=== PATIENT | male | born 1950 | race Caucasian/White ===

== ENCOUNTER 2025-03-20 07:31 | Outpatient (CLI) | payer MEDICARE, SELFPAY ==
--- NOTE | ~2025-03-20 | MR_ITS ---
EXAMINATION: MR knee LT wo con DATE: 03/20/2025 07:56 INDICATION: Left knee pain. TECHNIQUE: Magnetic resonance imaging (MRI) of the left knee was performed without intravenous contrast. Sequences included axial PD-weighted FS FSE, coronal PD-weighted FSE and PD-weighted FS FSE, sagittal PD-weighted FSE, and sagittal T2-weighted FS FSE. COMPARISON: Left knee radiographs 08/20/2024 FINDINGS: Medial compartment: There is a complex tear involving body and posterior horn of medial meniscus. There is cartilage surface irregularity involving tibial condyle and femoral condyle. Lateral compartment: Lateral meniscus is normal, but motion artifact decreases specificity. Lateral compartment cartilage is normal. Patellofemoral compartment: There is cartilage surface irregularity of patellar medial and lateral facets and median ridge. There is cartilage surface irregularity of trochlea. Ligaments and tendons: Anterior cruciate ligament is thickened with increased signal intensity, consistent with mucoid degeneration. Posterior cruciate ligament is similarly thickened with increased signal intensity, consistent with mucoid degeneration. There are changes of prior sprains of medial collateral ligament and lateral collateral ligament characterized by thickening and increased signal intensity proximally. There is mild patellar tendinopathy. Fluid: There is a small knee joint effusion. There is a small Beasley's cyst. There is mild prepatellar and superficial infrapatellar bursitis. IMPRESSION: 1. Mild chondrosis of medial and patellofemoral compartments. 2. Tear of medial meniscus. 3. 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 4. Small knee joint effusion. 5. Small Beasley's cyst. Reviewed, dictated and finalized at location E. IMPRESSION: 1. Mild chondrosis of medial and patellofemoral compartments. 2. Tear of medial meniscus. 3. Thickening and increased signal involving anterior cruciate ligament and pos terior cruciate ligament, most likely mucoid degeneration. 4. Small knee joint effusion. 5. Small Beasley's cyst.
== END 2025-03-20 07:32 | disposition home or self-care (01) ==
LOC: MICIMG 07:33
PROVIDERS: PCP Internal Medicine; Visit Provider Internal Medicine
DX: M22.42 Chondromalacia patellae, left knee (principal); S83.242A Other tear of medial meniscus, current injury, left knee, initial encounter; S76.112A Strain of left quadriceps muscle, fascia and tendon, initial encounter; S83.512A Sprain of anterior cruciate ligament of left knee, initial encounter; S83.521A Sprain of posterior cruciate ligament of right knee, initial encounter; M25.462 Effusion, left knee; M71.22 Synovial cyst of popliteal space [Baker], left knee
CPT/HCPCS: 73721

== ENCOUNTER 2025-03-20 08:18 | Outpatient (CLI) | payer MEDICARE, SELFPAY ==
--- NOTE | ~2025-03-20 | US_ITS ---
EXAMINATION: US retroperitoneal duplex ltd DATE: 03/20/2025 18:21 CDT INDICATION: Accelerated hypertension. TECHNIQUE: Sonographic imaging of the kidneys was performed with a 3.5 MHz transducer. Retroperitoneal duplex sonogram of the renal arteries also obtained. FINDINGS: No focal flow abnormalities are seen in the renal arteries on color Doppler. The peak systolic velocity ranges of the right and left renal arteries and aorta are 69 cm per second, 40 cm per second, and 12 cm per second, respectively. The velocities and renal to aortic ratios are within normal limits. IMPRESSION: 1. No Doppler evidence of renal artery stenosis. Reviewed, dictated and finalized at location O.
--- OUTSIDE RECORDS SUMMARY | 2025-03-20 08:24 | XMS_ITS | Clinical Summary ---
Author Organization [facility] Address [address] [facility] [place] [id number] Care Team Providers Care Training And Development Director Name Role Phone Unavailable Primary Care Provider Unavailabl e Allergies No known active allergies Medications amoxicillin (AMOXIL) 500 mg capsule 02/14/2021 Active atorvastatin (LIPITOR) 40 mg tablet Active chlorthalidone (HYGROTON) 25 mg tablet Active glimepiride (AMARYL) 2 mg tablet Active HYDROcodone bitartrate 80 mg tablet,oral only,ext.rel.24 hr Active ibuprofen (ADVIL,MOTRIN) 200 mg tablet 02/14/2021 Activ e lisinopriL (PRINIVIL,ZESTR IL) 40 mg tablet Active magnesium oxide (MagOx) 400 mg (241.3 mg magnesium) tablet Active olmesartan-amLO DIPin-hcthiazid 40-10-12.5 mg tablet Active pantoprazole (PROTONIX) 40 mg EC tablet Active sAXagliptin-met formin 2.5-1,000 mg tablet, ER multiphase 24 hr Active amLODIPine (NORVASC) 10 mg tablet Take 10 mg by mouth 1 (one) time each day. 01/13/2022 Active HYDROcodone-antonia taminophen (NORCO) 7.5-325 mg tablet 01/23/2022 Active metFORMIN (GLUCOPHAGE) 1,000 mg tablet Take 1,000 mg by mouth in the morning and at bedtime. 11/28/2021 Active rosuvastatin (CRESTOR) 20 mg tablet Take 20 mg by mouth 1 (one) time each day. 01/02/2022 Active glimepiride (AMARYL) 4 mg tablet Take 4 mg by mouth in the morning and at bedtime. 01/13/2022 Active Active Problems No known active problems Immunizations Immunization Administration Dates Next Due COVID-19, mRNA, LNP-S, PF, 1 00 mcg/0.5mL dose or 50 mcg/0.25mL dose 09/10/2020,08/13/2020 Social History Tobacco Use Types Packs/Day Years Used Date Smoking Tobacco: Every Day Cigarettes Smokeless Tobacco: Never Tobacco Cessation:Ready to Q uit: Not Asked; Counseling Given: Not Answered Comments:none Alcohol Use Standard Drinks/Week Comments Not Currently 0 (1 standard drink = 0.6 oz pur e alcohol) stopped drinking Sex and Gender Information Value Date Recorded Sex Assigned at Not on file Legal Sex Male 9:49 AM PDT Gender Identity Male 02/20/2021 10:59 AM PDT Sexual Orientation Not on file Last Filed Vital Signs Vital Sign Reading Time Taken Comments Blood Pressure 173/97 02/16/2022 8:47 AM CDT Pulse 98 02/16/2022 8:47 AM CDT Temperature - - Respiratory Rate - - Oxygen Saturation - - Inhaled Oxygen Concentration - - Weight 86.2 kg (190 lb) 02/16/2022 8:47 AM CDT Height 175.3 cm (5' 9) 02/16/2022 8:47 AM CDT Body Mass Index 28.06 02/16/2022 8:47 AM CDT Plan of Treatment Health Maintenance Due Date Last Done Comments Dental Oral Exam 1950 Dental Prophylaxis 1950 Dental X-Ray: Bitewings 1950 Dental X-Ray: Full Mouth 1949 Dental X-Ray: Panoramic 02/21/2025 02/20/2022, 02/22 Procedures Procedure Name Priority Date/Time Associated Diagnosis Comments PANORAMIC RADIOGRAPHIC IMAGE Routine 02/22/2021 10:00 AM CDT from Last 3 Months or Most Recently Relevant to Health Maintenance
--- OUTSIDE RECORDS SUMMARY | 2025-03-20 08:24 | XMS_ITS | Clinical Summary ---
Author Organization [facility] Address [address] [place] [id number] Care Team Providers Care Trucking Supervisor Name Role Phone Alexander Queen MD Primary Care Provider Adalberto Burkett MD Unavailable [phone] Allergies Active Allergy Reactions Criticality Noted Date Comments Neosporin G.U. Irrigant Redness Low 04/04/2024 Medications glimepiride (AMARYL) 4 mg tablet Take 1 tablet (4 mg total) by mouth 2 (two) times a day 09/06/2023 Active TOUJEO 300 unit/mL (1.5 mL) pen for injection Inject 15 Units under the skin daily 10/25/2023 Active magnesium oxide (MAG-OX) 400 mg (241.3 mg elemental magnesium) tablet Take 1 tablet (400 mg total) by mouth 2 (two) times a day 10/22/2023 Active metFORMIN (GLUCOPHAGE) 1,000 mg tablet Take 1 tablet (1,000 mg total) by mouth 2 (two) times a day 09/27/[address] (PROTONIX) 40 mg EC tablet Take 1 tablet (40 mg total) by mouth daily 10/22/2023 Active aspirin 81 mg enteric coated tablet Take 1 tablet (81 mg total) by mouth daily 30 tablet 1 12/10/2023 Active cetirizine (ZyrTEC) 10 mg tablet Take 1 tablet (10 mg total) by mouth daily Active HYDROcodone-acet aminophen (NORCO) 7.5-325 mg per tablet Take 1 tablet by mouth every 6 (six) hours as needed for pain Active calcium carbonate-vitami n D3 1,250mg (500mg elemental) - 5 mcg (200 units) per tablet Take 1 tablet by mouth daily 30 tablet 11 01/09/2024 Active metoprolol XL (TOPROL-XL) 100 mg 24 hr tablet Take 1 tablet (100 mg total) by mouth daily 90 tablet 3 12/02/2024 Active Active Problems Problem Noted Date Diagnosed Date Hypokalemia 01/28/2024 Assessment & Plan (01/28/2024 4:32 AM CDT): Noted with initial lab tests Supplement provided Reassessment levels and further adjustments to management Nephrology consultation to assess for potential etiology LETICIA (acute kidney injury) 01/28/2024 Assessment & Plan (01/28/2024 4:32 AM CDT): Noted with initial lab testings IV fluid therapy provided Subsequent lab testing shows resolution Constipation 01/28/2024 Assessment & Plan (01/28/2024 4:33 AM CDT): As noted on CT imaging Lactulose therapy initiated Pending follow-up assessment BPH (benign prostatic hyperplasia) 01/28/2024 Assessment & Plan (01/28/2024 4:34 AM CDT): As noted on CT imaging Further discussion, patient indicates needing to strain to initiate urination with only small urine output being expressed Initiate tamsulosin therapy Consider outpatient urology evaluation Aneurysm 01/28/2024 Assessment & Plan (01/28/2024 4:36 AM CDT): As noted on CT imaging, localized to ascending thoracic aneurysm (4.2 cm) and infrarenal abdominal aortic aneurysm (3.6 cm) Vascular surgery evaluation Possible outpatient follow-up imaging to be coordinated Syncope and collapse 01/06/2024 Assessment & Plan (01/28/2024 4:39 AM CDT): Differential diagnosis includes she was seizure disorder Neurology consultation Fall precaution Neurologic checks CT head inconclusive for acute findings PTOT evaluation Nausea and vomiting 01/05/2024 Metabolic syndrome 01/05/2024 Hypocalcemia 01/05/2024 Atrial fibrillation 01/05/2024 Leukocytosis 01/05/2024 Chronic anemia 01/05/2024 Hypomagnesemia 01/05/2024 Assessment & Plan (01/28/2024 4:31 AM CDT): Noted upon initial lab testings in ER IV supplement provided Repeat lab testing show some improvement, repeat supplement will be provided Daily oral supplements to continue Nephrology consultation for further assessment electrolyte abnormality/etiology Syncope, unspecified syncope type 01/04/2024 S/P CABG (coronary artery bypass graft) 12/04/19 ST elevation myocardial infa rction (STEMI) involving right coronary artery with complication 12/02/2023 Essential hypertension, benign 12/02/2023 Mixed hyperlipidemia 12/02/2023 Tobacco use 12/02/2023 History of diabetes mellitus 12/02/2023 Hypokalemia 12/02/2023 STEMI (ST elevation myocardial infarction) 12/01 Coronary artery disease invo lving chitimacha coronary artery of [place] heart with unstable angina pectoris 12/02/2023 Resolved Problems Problem Noted Date Diagnosed Date Resolved Date ST elevation myocardial infarction (STEMI) 12/02/2023 12/02/2023 STEMI (ST elevation myocardial infarction) 12/02/2023 12/02/2023 Surgical History Surgery Date Site/Laterality Comments CARDIAC CATHETERIZATION CORONARY ARTERY BYPASS GRAFT Medical History Medical History Date Comments Diabetes mellitus Hypertension Coronary artery disease Family History Medical History Relation Name Comments Heart attack Father Relation Name Status Comments Father Social History Tobacco Use Types Packs/Day Years Used Date Smoking Tobacco: Former Cigarettes 1 61.3 S tarted: 12/02/1963 Tobacco Cessation:Counseling Given: Not Answered [facility] Utilities Answer Date Recorded In the past 12 months has [employer], gas, oil, or water [employer] threatened to shut off services in your home? No 01/28/2024 Social Connection and Isolation Panel Answer Date Recorded In a typical week, how many times do you talk on the phone with family, friends, or neighbors? More than three times a week 01/28/2024 How often do you get togethe r with friends or relatives? More than three times a week 01/28/2024 How often do you attend chur ch or pentecostalism services? More than 4 times per year 01/28/2024 Do you belong to any clubs o r organizations such as restorationist groups, unions, fraternal or athletic groups, or school groups? No 01/28/2024 How often do you attend meet ings of the clubs or organizations you belong to? Never 01/28/2024 Are you , , di vorced, , never , or living with a partner? 01/28/2024 AUDIT-C Answer Date Recorded Q1: How often do you have a drink containing alcohol? Never 01/05/2024 Q2: How many drinks containi ng alcohol do you have on a typical day when you are drinking? Patient does not drink Q3: How often do you have si x or more drinks on one occasion? Never 01/05/2024 Overall Financial Resource Strain (CARDIA) Answe r Date Recorded How hard is it for you to pa y for the very basics like food, housing, medical care, and heating? Not very hard 01/28/2024 PHQ-2 Answer Date Recorded PHQ-2 Total Score (If total score is 3 or more points, staff should administer the PHQ-9) 2 01/11/2024 Hunger Vital Sign Answer Date Recorded Within the past 12 months, y ou worried that your food would run out before you got the money to buy more. Never true 01/28/20 24 Within the past 12 months, t he food you bought just didn't last and you didn't have money to get more. Never true 01/28/2024 PRAPARE - Transportation Answer Date Re corded Lack of Transportation (Medical) Not on file 01/28/2024 In the past 12 months, has l ack of transportation kept you from meetings, work, or from getting things needed for daily living? No 01/28/2024 PHQ-9 Answer Date Recorded PHQ-9 Total Score 6 01/11/2024 Housing Stability Vital Sign Answer Rashaun e Recorded In the last 12 months, was t here a time when you were not able to pay the mortgage or rent on time? No 01/28/2024 In the past 12 months, how m any times have you moved where you were living? 0 01/28/2024 At any time in the past 12 m [facility], were you homeless or living in a retirement (including now)? No 01/28/2024 Personal Safety Answer Date Recorded Have you ever been in or are you currently in a harmful physical or emotional relationship or is someone making you feel afraid or unsafe? Denies 01/27/2024 Sex and Gender Information Value Date Recorded Sex Assigned at Not on file Legal Sex Male 2:28 PM CDT Gender Identity Not on file Sexual Orientation Not on file Obstetrics History Last Filed Vital Signs Vital Sign Reading Time Taken Comments Blood Pressure 150/102 12/02/2024 9:24 AM CDT Pulse 64 12/02/2024 9:24 AM CDT Temperature 36.4 C (97.5 F) 01/29/2024 3:24 PM CDT Respiratory Rate 18 12/02/2024 9:24 AM CDT Oxygen Saturation 96% 12/02/2024 9:24 AM CDT Inhaled Oxygen Concentration - - Weight 88 kg (194 lb) 12/02/2024 9:24 AM CDT Height 175.3 cm (5' 9) 12/02/2024 9:24 AM CDT Body Mass Index 28.65 12/02/2024 9:24 AM CDT Plan of Treatment Health Maintenance Due Date Last Done Comments Colon Cancer Screening-Colonoscopy 1950 Hepatitis C Screening 1950 Hepatitis B Screening 1967 Pneumococcal vaccine 65+ (1 of 1 - PCV) 1999 Zoster Vaccine (1 of 2) 1999 Well Visit 65+ 2014 Depression Screening 01/10/2025 01/11/2024, 01/11/20 24 Fall Risk Assessment 01/28/2025 01/29/2024 Covid-19 Vaccine ( - season) 2025, 08/13/2020 Influenza Vaccine (#1) 2025 DTaP/Tdap/Td Vaccine (2 - Td or Tdap) 08/06/203305/2024 Abdominal Aortic Aneurysm (AAA) Screen Completed Medical Devices Implanted Type Area Applications Project Manager Device Identifier Shelf Expiration Date Model / Serial / Lot [employer] Sensation Plus Statlock 8fr 17.4mm .027in 6in 258mm Fiber Optic [id number] - [id number] Implanted:Qty: 1 on 12/02/2023 by Kaveh Vital MD at [facility] [employer] 10/20/2025 [id number] / / [id number] [employer] Doe Distal Marker Radiology Stainless Steel Sterile Amgm-D - [id number] Implanted:Qty: 1 on 12/04/2023 by Adalberto Carreon MD at [facility] N/A: Heart [employer] [id number] 07/26/2026 AMGM-D / / [id number] [employer] Doe Distal Marker Radiology Stainless Steel Sterile Amgm-D - [id number] Implanted:Qty: 1 on 12/04/2023 by Adalberto Carreon MD at [facility] N/A: Heart [employer] [id number] 07/26/2026 AMGM-D / / [id number] Procedures Procedure Name Priority Date/Time Associated Diagnosis Comments CT CHEST ABDOMEN PELVIS WO CONTRAST ED 01/27/2024 11:25 PM CDT from Last 3 Months or Most Recently Relevant to Health Maintenance Results * CT Chest Abdomen Pelvis WO Contrast (01/27/2024 11:25 PM CDT) Anatomical Region Laterality Modality Body N/A Computed Tomogra phy 01/27/2024 11:5 9 PM CDT Narrative 01/28/2024 12:10 AM CDT EXAM DESCRIPTION: CT CHEST ABDOMEN PELVIS WO CONTRAST REASON FOR STUDY: Sepsis, aspiration PNA 73 y.o. male presenting with witness episode (by ) where he stopped talking, flexed his hands in front of his face, stopped talking and abruptly fell to the ground with eyes opened and foaming at the mouth. He was slow on arrival to ED but has improved during admission. No previous seizure history. WBC 11.7 Hx: HTN, DM Surg: coronary 100 mL IV iodinated contrast tonight at 1853 TECHNIQUE: CT scan of the chest, abdomen, and pelvis performed without intravenous and without oral contrast using helical scanning technique. Reconstructed coronal and sagittal MPR images reviewed. All images stored on PACS. Automated exposure control was used as a dose optimization technique for this examination. COMPARISON: CTA chest dated 01/04/2024. FINDINGS: The sensitivity for detection of visceral lesions is diminished without the use of intravenous contrast. CHEST LUNGS: There is linear/bandlike opacity at the posterior aspect of the right lower lobe, stable compared to prior exam. Linear opacities at the bilateral lung bases involving posterior lobes and lingular region of the left lung also stable compared to prior exam. There is a stable calcified nodule adjacent to the major fissure on the left as evidence for old granulomatous disease. PLEURA: No effusion. No pneumothorax. MEDIASTINUM/WINTER: No identified masses or abnormal nodes. HEART: Heart size is normal with no pericardial effusion. CORONARY ARTERY CALCIFICATION: Severe. VASCULATURE CHEST: The ascending aorta is prominent measuring 4.2 cm in diameter at the level of the pulmonary trunk, stable compared to prior exam. AXILLA: No adenopathy. CHEST WALL: No masses. No subcutaneous air. HARDWARE/LINES/TUBES: Stable median sternotomy wires from prior CABG. MUSCULOSKELETAL CHEST: No acute abnormality. ABDOMEN/PELVIS LIVER: Normal size. No identified cystic or solid masses. No cysts. GALLBLADDER: Unremarkable. BILE DUCTS: No intrahepatic or extrahepatic ductal dilatation. SPLEEN: Atrophied. Scattered calcified granulomas. PANCREAS: No identified cystic or solid masses. No significant calcifications. No adjacent inflammation or peripancreatic fluid collections. Pancreatic duct not dilated. ADRENALS: Normal. KIDNEYS/URINARY TRACT: There is fngn-[id number] nonspecific perinephric fat stranding bilaterally. No focal renal lesion is evident. Portions of the ureters are unopacified. Given this caveat, no focal filling defect is identified within the renal collecting system. Urinary bladder is unremarkable. GI: There is moderately prominent stool throughout the large bowel. Appendix is at upper limits of normal in diameter. No adjacent periappendiceal inflammation fluid collection is evident. Small bowel appears within normal limits. PERITONEUM: No ascites or free air. RETROPERITONEUM: No mass or adenopathy. REPRODUCTIVE: Prostate is markedly enlarged. VASCULATURE ABDOMEN: There is an infrarenal abdominal aortic aneurysm measuring up to 3.6 cm in diameter. MUSCULOSKELETAL ABDOMEN PELVIS: No acute finding. OTHER: No significant abnormality. IMPRESSION: No acute findings in the chest, abdomen or pelvis. Stable linear/bandlike opacities at the lung bases as evidence for recurrent atelectasis or scarring. Stable ascending thoracic aortic aneurysm measuring 4.2 cm in diameter. Infrarenal abdominal aortic aneurysm measuring 3.6 cm in diameter. 3.0-3.9 cm Recommended surveillance imaging at 3-year intervals per Society for Vascular Surgery Guidelines: J Vasc Surgery 2008 50: s2s49; updated Jun 2017 J Vasc Surgery 67:277 Moderate stool burden. Marked prostatomegaly. Appendix at upper limits of normal in diameter. No adjacent periappendiceal inflammation or fluid collection is evident. THIS IS AN ELECTRONICALLY VERIFIED FINAL REPORT 01/28/2024 12:10 AM - Electronically signed by Eric Navarrete M.D., Eric.O. Janes Banda M.D. T: Report ID: [id number] Reading Location: [id number] Procedure Note Eric Navarrete MD - 01/28/2024 EXAM DESCRIPTION: CT CHEST ABDOMEN PELVIS WO CONTRAST REASON FOR STUDY: Sepsis, aspiration PNA 73 y.o. male presenting with witness episode (by ) where he stopped talking, flexed his hands in front of his face, stopped talking andabruptly fell to the ground with eyes opened and foaming at the mouth. He was slowon arrival to ED but has improved during admission. No previous seizure history. WBC 11.7 Hx: HTN, DM Surg: coronary 100 mL IV iodinated contrast tonight at 1853 TECHNIQUE: CT scan of the chest, abdomen, and pelvis performed without intravenous and without oral contrast using helical scanning technique. Reconstructed coronal and sagittal MPR images reviewed. All images storedon PACS. Automated exposure control was used as a dose optimizationtechnique for this examination. COMPARISON: CTA chest dated 01/04/2024. FINDINGS: The sensitivity for detection of visceral lesions is diminished without the use of intravenous contrast. CHEST LUNGS: There is linear/bandlike opacity at the posterior aspect of theright lower lobe, stable compared to prior exam. Linear opacities at thebilateral lung bases involving posterior lobes and lingular region of the left lungalso stable compared to prior exam. There is a stable calcified noduleadjacent to the major fissure on the left as evidence for old granulomatous disease. PLEURA: No effusion. No pneumothorax. MEDIASTINUM/WINTER: No identified masses or abnormal nodes. HEART: Heart size is normal with no pericardial effusion. CORONARY ARTERY CALCIFICATION: Severe. VASCULATURE CHEST: The ascending aorta is prominent measuring 4.2 cm in diameter at the level of the pulmonary trunk, stable compared to priorexam. AXILLA: No adenopathy. CHEST WALL: No masses. No subcutaneous air. HARDWARE/LINES/TUBES: Stable median sternotomy wires from prior CABG. MUSCULOSKELETAL CHEST: No acute abnormality. ABDOMEN/PELVIS LIVER: Normal size. No identified cystic or solid masses. No cysts. GALLBLADDER: Unremarkable. BILE DUCTS: No intrahepatic or extrahepatic ductal dilatation. SPLEEN: Atrophied. Scattered calcified granulomas. PANCREAS: No identified cystic or solid masses. No significant calcifications. No adjacent inflammation or peripancreatic fluidcollections. Pancreatic duct not dilated. ADRENALS: Normal. KIDNEYS/URINARY TRACT: There is ljxa-bf-rbbcehtp nonspecific perinephricfat stranding bilaterally. No focal renal lesion is evident. Portions of the ureters are unopacified. Given this caveat, no focal filling defect is identified within the renal collecting system. Urinary bladder is unremarkable. GI: There is moderately prominent stool throughout the large bowel. Appendix is at upper limits of normal in diameter. No adjacent periappendiceal inflammation fluid collection is evident. Small bowelappears within normal limits. PERITONEUM: No ascites or free air. RETROPERITONEUM: No mass or adenopathy. REPRODUCTIVE: Prostate is markedly enlarged. VASCULATURE ABDOMEN: There is an infrarenal abdominal aortic aneurysm measuring up to 3.6 cm in diameter. MUSCULOSKELETAL ABDOMEN PELVIS: No acute finding. OTHER: No significant abnormality. IMPRESSION: No acute findings in the chest, abdomen or pelvis. Stable linear/bandlike opacities at the lung bases as evidence forrecurrent atelectasis or scarring. Stable ascending thoracic aortic aneurysm measuring 4.2 cm in diameter. Infrarenal abdominal aortic aneurysm measuring 3.6 cm in diameter.3.0-3.9 cm Recommended surveillance imaging at 3-year intervals per Society forVascular Surgery Guidelines: J Vasc Surgery 2008 50: s2s49; updated Jun 2017 JVasc Surgery 67:277 Moderate stool burden. Marked prostatomegaly. Appendix at upper limits of normal in diameter. No adjacentperiappendiceal inflammation or fluid collection is evident. THIS IS AN ELECTRONICALLY VERIFIED FINAL REPORT 01/28/2024 12:10 AM - Electronically signed by Eric Navarrete M.D., Eric.O. Eric Navarrete M.D., Eric.OPranav RICKS T: Report ID: [id number] Reading Location: [id number] Anju Shi MD IMG CT PROCEDURES Maude l Result from Last 3 Months or Most Recently Relevant to Health Maintenance Insurance MEDICARE [facility] MEDICARE [employer] Advance Directives For more information, please contact: [phone] * Full Code (Latest Code Status on File) Date Activated Date Inactivated Comments 01/28/2024 3:57 AM 01/29/2024 8:41 PM * Full Code Date Activated Date Inactivated Comments 01/04/2024 11:34 PM 01/08/2024 5:32 PM * Full Code Date Activated Date Inactivated Comments 12/04/2023 4:08 PM 12/09/2023 7:28 PM * Full Code Date Activated Date Inactivated Comments 12/02/2023 5:59 PM 12/04/2023 4:08 PM Care Teams Trucking Supervisor Relationship Specialty Start Date End Date Alexander Queen MD PCP - General Internal Medicine 12/01/23 Adalberto Burkett MD Consulting Physician Nephrology 01/29/24
--- OUTSIDE RECORDS SUMMARY | 2025-03-20 08:24 | XMS_ITS | Encounter Summary ---
Author Organization [facility] Health Address [address] [place] [address] Care Team Providers Care Forest Fire Fighter Name Role Phone Unavailable Primary Care Provider Unavailabl e Prior Encounters Date Type Department Care Team Description 02/16/2022 8:45 AM CDT Office Visit [facility] [address] [place] [phone] Yvonne Silver DDS Dental caries unspecified (Primary Dx) 02/03/2022 Travel 01/25/2022 Travel 01/25/2022 9:30 AM CDT Office Visit [facility] [address] [place] [address] Rudy Murdock DDS 02/22/2021 Travel 02/22/2021 10:00 AM CDT Office Visit [facility] [address] [place] [phone] Elise Martinez, DMD Last Filed Vital Signs Vital Sign Reading [...] 02/16/2022 8:47 AM CDT Plan of Treatment Not on file Procedures Procedure Name Priority Date/Time Associated Diagnosis Comments DEEP SEDATION Routine 02/16/2022 10:25 AM CDT Dental caries unspecified OS CONSULT Routine 02/16/2022 8:45 AM CDT THERAPEUTIC PARENTERAL DRUGS, TWO OR MORE ADMINISTRATIONS, DIFFERENT MEDICATIONS Routine 02/16/2022 8:45 AM CDT DEEP SEDATION/GENERAL ANESTHESIA EACH SUBSEQUENT 15 MINUTE INCREMENT Routine 02/16/2022 8:45 AM CDT DEEP SEDATION/GENERAL ANESTHESIA EACH SUBSEQUENT 15 MINUTE INCREMENT Routine 02/16/2022 8:45 AM CDT DEEP SEDATION/GENERAL ANESTHESIA EACH SUBSEQUENT 15 MINUTE INCREMENT Routine 02/16/2022 8:45 AM CDT DEEP SEDATION/GENERAL ANESTHESIA FIRST 15 MINUTES Routine 02/16/2022 8:45 AM CDT 15 PLACEMENT OF INTRA-SOCKET BIOLOGICAL DRESSING TO AID IN HEMOSTASIS OR CLOT STABILIZATION, PER SITE Routine 02/16/2022 8:45 AM CDT 4 PLACEMENT OF INTRA-SOCKET BIOLOGICAL DRESSING TO AID IN HEMOSTASIS OR CLOT STABILIZATION, PER SITE Routine 02/16/2022 8:45 AM CDT 1 PLACEMENT OF INTRA-SOCKET BIOLOGICAL DRESSING TO AID IN HEMOSTASIS OR CLOT STABILIZATION, PER SITE Routine 02/16/2022 8:45 AM CDT 15 EXTRACTION, ERUPTED TOOTH REQUIRING REMOVAL OF BONE AND/OR SECTIONING OF TOOTH Routine 02/16/2022 8:45 AM CDT 4 EXTRACTION, ERUPTED TOOTH REQUIRING REMOVAL OF BONE AND/OR SECTIONING OF TOOTH Routine 02/16/2022 8:45 AM CDT 1 EXTRACTION, ERUPTED TOOTH REQUIRING REMOVAL OF BONE AND/OR SECTIONING OF TOOTH Routine 02/16/2022 8:45 AM CDT ADDITIONAL X-RAY Routine 01/25/2022 9:30 AM CDT LIMITED ORAL EVALUATION - PROBLEM FOCUSED Routine 01/25/2022 9:30 AM CDT SINGLE X-RAY Routine 01/25/2022 9:30 AM CDT 18 EXTRACTION, ERUPTED TOOTH REQUIRING REMOVAL OF BONE AND/OR SECTIONING OF TOOTH Routine 02/22/2021 10:00 AM CDT PANORAMIC RADIOGRAPHIC IMAGE Routine 02/22/2021 10:00 AM CDT BITEWING - SINGLE RADIOGRAPHIC IMAGE Routine 02/22/2021 10:00 AM CDT ADDITIONAL X-RAY Routine 02/22/2021 10:0 0 AM CDT SINGLE X-RAY Routine 02/22/2021 10:00 AM CDT LIMITED ORAL EVALUATION - PROBLEM FOCUSED Routine 02/22/2021 10:00 AM CDT Results * DEEP SEDATION (02/16/2022 10:25 AM CDT) Yvonne Blevins DDS - 02/16/2022 10:25 AM CDT Yvonne Silver DDS 02/16/2022 10:26 AM Deep Sedation Date/Time: 02/16/2022 10:25 AM Performed by: Yvonne Silver DDS Authorized by: Yvonne Silver DDS Consent: Consent obtained: Verbal and written Consent given by: Patient Risks discussed: Allergic reaction, prolonged hypoxia resulting in organ damage, dysrhythmia, prolonged sedation necessitating reversal, respiratory compromise necessitating ventilatory assistance and intubation, nausea, inadequate sedation and vomiting Alternatives discussed: Analgesia without sedation and anxiolysis Indications: Procedure performed: Extraction, SRG REM Intended level of sedation: Deep Pre-sedation assessment: IV: 22 gauge Vein SIte: Right arm and hand Intravenous: normal saline IV Start Time: 02/16/2022 8:45 AM ASA classification: class 2 - patient with mild systemic disease Mallampati score: II - soft palate, uvula, fauces visible Tonsils: small Thyromental distance: > 6 cm Neck Mobilty: Full Heart S1: S1 Heart S2: S2 Lungs: CTAB NPO: greater than or equal to 8 hours Pre-sedation assessments completed and reviewed: airway patency, cardiovascular function, hydration status, mental status, nausea/vomiting, pain level, respiratory function and temperature History of difficult intubation: no Pre-sedation assessment completed: 02/16/2022 8:45 AM Immediate pre-procedure details: Reassessment: Patient reassessed immediately prior to procedure Verified: bag valve mask available, emergency equipment available, intubation equipment available, IV patency confirmed, oxygen available, reversal medications available and suction available Procedure details: Sedation start time: 02/16/2022 9:00 AM Preoxygenation: Nasal cannula Position: reclined Sedation: Versed, propofol, decadron and other Intra-procedure monitoring: Blood pressure monitoring, supply and distribution manager, continuous capnometry, continuous pulse oximetry, frequent LOC assessments and frequent vital sign checks Intra-procedure events: none Intra-procedure management: Supplemental oxygen Sedation end time: 02/16/2022 9:50 AM Total sedation time (minutes): 50 IV End Time: 02/16/2022 10:05 AM Post-procedure details: Post-sedation assessment completed: 02/16/2022 10:20 AM Complications: None Criteria for discharge: cardiovascular function satisfactory and stable, airway patency satisfactory and stable, easily arousable, responsiveness at or near presedation level, protective reflexes intact, communication at presedation level, ability to sit up unaided at presedation level and hydration adequate Patient tolerance: Tolerated well, no immediate complications Patient is stable for discharge or admission: yes Retort Forker's Name:: Yvonne Silver DDS ANESTHESIA ORDERABLES Final Re sult Visit Diagnoses Diagnosis Start Date Dental caries unspecified 02/16/2022
== END 2025-03-20 08:19 | disposition home or self-care (01) ==
LOC: ANHIMG 08:21
PROVIDERS: PCP Internal Medicine; Visit Provider Internal Medicine
DX: I10 Essential (primary) hypertension (principal)
CPT/HCPCS: 93976

== ENCOUNTER 2025-04-09 12:53 | Outpatient (CLI) | payer MEDICARE, SELFPAY ==
--- NOTE | 2025-04-09 13:01 | ECG_ITS ---
Test Date: 2025-04-09 13:10:45 Measurements Intervals [place] Rate: 70 P: 57 MA: 158 QRS: 2 QRSD: 95 T: 5 QT: 371 QTc: 401 Interpretive Statements SINUS RHYTHM POSSIBLE LEFT ATRIAL ENLARGEMENT CANNOT R/O SEPTAL INFARCT, AGE INDETERMINATE INFERIOR INFARCT, AGE INDETERMINATE BASELINE ARTIFACT- I, II, III, AVR, AVL, AVF ABNORMAL ECG No previous ECG available for comparison Electronically Signed On 04-09-2025 13:18:21 CDT by Rui Link D.O.
[2025-04-09 13:51] LABS: Anion Gap 8 mmol/L (4-12); Blood Urea Nitrogen 18 mg/dL (9-20); Calcium 9.1 mg/dL (8.4-10.2); Carbon Dioxide 28 mmol/L (22-30); Chloride 98 mmol/L (98-107); Estimated Glomerular Filt Rate > 60; Glucose 261 mg/dL (65-110); Potassium 3.8 mmol/L (3.4-5.0); Sodium 134 mmol/L (137-145)
--- OUTSIDE RECORDS SUMMARY | 2025-04-09 14:42 | XMS_ITS | Clinical Summary ---
Author Organization [facility] Address [address] [place] [phone] Care Team Providers Care Batting Machine Operator Name Role Phone Alexander Queen MD Primary Care Provider Adalberto Burkett MD Unavailable [phone] Allergies Active Allergy Reactions Criticality Noted [...] infarction) 12/01 Coronary artery disease invo lving [place] coronary artery of [place] heart with unstable angina pectoris 12/02/2023 Resolved [...] Used Date Smoking Tobacco: Former Cigarettes 1 61.4 S tarted: 12/02/1963 Tobacco Cessation:Counseling Given: Not Answered [facility] Utilities Answer Date Recorded In the past 12 months has [employer], gas, oil, or water Resilience threatened to shut off services in your [...] often do you attend chur ch or tenriism services? More than 4 times per year 01/28/2024 Do you belong to any clubs o r organizations such as confucianism groups, unions, fraternal or athletic groups, or [...] any time in the past 12 m [facility], were you homeless or living in a longterm (including now)? No 01/28/2024 Personal Safety Answer [...] Screen Completed Medical Devices Implanted Type Area Seaming Machine Operator Device Identifier Shelf Expiration Date Model / Serial / Lot [employer] Sensation Plus Statlock 8fr 17.4mm .027in 6in 258mm Fiber Optic [id number] - [id number] Implanted:Qty: 1 on 12/02/2023 by Kaveh Vital MD at [facility] [employer] 10/20/2025 [id number] / / [id number] [employer] Doe Distal Marker Radiology Stainless Steel Sterile Amgm-D - [id number] Implanted:Qty: 1 on 12/04/2023 by Adalberto Carreon MD at [facility] N/A: Heart [employer] [id number] 07/26/2026 AMGM-D / / [id number] [employer] Doe Distal Marker Radiology Stainless Steel Sterile Amgm-D - [id number] Implanted:Qty: 1 on 12/04/2023 by Adalberto Carreon MD at [facility] N/A: Heart [employer] [id number] 07/26/2026 AMGM-D / / [id number] Procedures Procedure Name Priority Date/Time Associated Diagnosis [...] dilated. ADRENALS: Normal. KIDNEYS/URINARY TRACT: There is uwbz-gg-hixiuhde nonspecific perinephric fat stranding bilaterally. No focal [...] Eric.O. Janes Banda M.D. T: Report ID: [id number] Reading Location: [id number] Procedure Note Eric Navarrete MD - 01/28/2024 [...] dilated. ADRENALS: Normal. KIDNEYS/URINARY TRACT: There is picn-bv-mxoxmnlt nonspecific perinephricfat stranding bilaterally. No focal renal [...] Navarrete M.D., Eric.OPranav RICKS T: Report ID: [id number] Reading Location: [id number] Anju Shi MD IMG CT PROCEDURES Maude l Result from Last 3 Months or Most Recently Relevant to Health Maintenance Insurance MEDICARE [facility] MEDICARE [employer] Advance Directives For more information, please contact: [phone] * Full Code (Latest Code Status on File) Date Activated Date Inactivated Comments 01/28/2024 3:57 AM 01/29/2024 8:41 PM * Full Code Date Activated Date Inactivated Comments 01/04/2024 11:34 PM 01/08/2024 5:32 PM * Full Code Date Activated Date Inactivated Comments 12/04/2023 4:08 PM 12/09/2023 7:28 PM * Full Code Date Activated Date Inactivated Comments 12/02/2023 5:59 PM 12/04/2023 4:08 PM Care Teams Batting Machine Operator Relationship Specialty Start Date End Date Alexander Queen MD PCP - General Internal Medicine 12/01/23 Adalberto Burkett MD Consulting Physician Nephrology 01/29/24
--- OUTSIDE RECORDS SUMMARY | 2025-04-09 14:42 | XMS_ITS | Clinical Summary ---
Author Organization [facility] Address [address] [place] [address] Care Team Providers Care Commercial Census Taker Name Role Phone None, Provider MD Primary Care Provider Unavaila ble Allergies No known active allergies Medications HYDROcodone-acet aminophen (NORCO) 5-325 MG tabletIndication s:Acute Pain < 3 Day Supply Take 1 tablet by mouth every 6 (six) hours as needed for Pain. Indications : Acute Pain < 3 Day Supply 8 tablet 08/06/2023 Active Immunizations Immunization Administration Dates Next Due MODERNA COVID-19 (12+) MRNA, LNP-S, PF, 100 MCG/ 0.5 ML DOSE 09/10/2020,08/13/2020 Tdap (Boostrix) 08/06/2023 Social History Tobacco Use Types Packs/Day Years Used Date Smoking Tobacco: Never Smokeless Tobacco: Never Tobacco Cessation:Counseling Given: Not Answered Alcohol Use Standard Drinks/Week Comments Never 0 (1 standard drink = 0.6 oz pur e alcohol) Sex and Gender Information Value Date Recorded Sex Assigned at Not on file Legal Sex Male 12:36 PM CLINICAL NURSE LEADER Gender Identity Not on file Sexual Orientation Not on file Last Filed Vital Signs Vital Sign Reading Time Taken Comments Blood Pressure 174/80 08/06/2023 6:56 PM CLINICAL NURSE LEADER Pulse 107 08/06/2023 6:56 PM CLINICAL NURSE LEADER Temperature 36.4 C (97.5 F) 08/06/2023 6:56 PM CLINICAL NURSE LEADER Respiratory Rate 20 08/06/2023 6:56 PM CLINICAL NURSE LEADER Oxygen Saturation 97% 08/06/2023 6:56 PM CLINICAL NURSE LEADER Inhaled Oxygen Concentration - - Weight 81.6 kg (180 lb) 08/06/2023 6:56 PM CLINICAL NURSE LEADER Height 172.7 cm (5' 8) 08/06/2023 6:56 PM CLINICAL NURSE LEADER Body Mass Index 27.37 08/06/2023 6:56 PM CLINICAL NURSE LEADER Plan of Treatment Health Maintenance Due Date Last Done Comments Colorectal Cancer Screening Colonoscopy (10 Years) 1949 Hepatitis C 1967 Zoster Vaccines (1 of 2) 1999 Annual Medicare Wellness Visit 2014 Pneumococcal Vaccine: 50+ Years (2 of 2 - PCV20 or PCV21) 08/17/2021 08/17/2020 RSV Immunization or 60+ Years (1 - 1-dose 75+ series) 2024 COVID-19 Vaccine (4 - 2024-2 6 season) 2025 05/09/2021, 09/10/2020, 08/13/2020 Influenza Adult (#1) 2025 04/06/2022 DTaP, Tdap and Td Vaccines ( 2 - Td or Tdap) 08/06/2033 08/06/2023 Hepatitis A Vaccines Aged Out No long er eligible based on patient's age to complete this topic Meningococcal B Vaccine Aged Out No l onger eligible based on patient's age to complete this topic Meningococcal Vaccine Aged Out No emerita regi eligible based on patient's age to complete this topic RSV Immunizations Under 20 Months Aged Out No longer eligible b ased on patient's age to complete this topic Insurance MEDICARE [employer] Care Teams Commercial Census Taker Relationship Specialty Start Date End Date None, Provider, MD PCP - General UNKNOWN PHYSICIAN SPECIALTY 08/06/23
--- OUTSIDE RECORDS SUMMARY | 2025-04-09 14:42 | XMS_ITS | Encounter Summary ---
Author Organization [facility] Health Address [address] [place] [address] Care Team Providers Care Middle Card Tender Name Role Phone Unavailable Primary Care Provider Unavailabl e Prior Encounters Date Type Department Care Team Description 02/16/2022 8:45 AM CDT Office Visit [facility] [address] [place] [phone] Yvonne Silver DDS Dental caries unspecified (Primary Dx) 02/03/2022 Travel 01/25/2022 Travel 01/25/2022 9:30 AM CDT Office Visit [facility] [address] [place] [phone] Rudy Murdock DDS 02/22/2021 Travel 02/22/2021 10:00 AM CDT Office Visit [facility] [address] [place] [phone] Elise Martinez, DMD Last Filed Vital Signs [...] and other Intra-procedure monitoring: Blood pressure monitoring, quality assurance monitor body, continuous capnometry, continuous pulse oximetry, frequent LOC [...] is stable for discharge or admission: yes Tufting Machine Operator Single Needle's Name:: Yvonne Silver DDS ANESTHESIA ORDERABLES Final Re sult Visit Diagnoses Diagnosis Start Date Dental caries unspecified 02/16/2022
--- OUTSIDE RECORDS SUMMARY | 2025-04-09 14:42 | XMS_ITS | Clinical Summary ---
Author Organization [facility] Address [address] [facility] [place] [address] Care Team Providers Care Glue Bone Crusher Name Role Phone Unavailable Primary Care Provider [...]
== END 2025-04-09 12:54 | disposition home or self-care (01) ==
PROVIDERS: Anesthesiology; PCP Internal Medicine; Visit Provider Orthopaedic Surgery
DX: I25.10 Atherosclerotic heart disease of native coronary artery without angina pectoris (principal); E11.9 Type 2 diabetes mellitus without complications; R94.31 Abnormal electrocardiogram [ECG] [EKG]
CPT/HCPCS: 36415; 80048; 93005

== ENCOUNTER 2025-04-16 02:08 | Day surgery (SDC) | payer MEDICARE, SELFPAY ==
[2025-04-09 09:48] VITALS: BMI 27.3
--- NOTE | 2025-04-09 09:49 | PC.NURSE ---
[facility] has started construction of its new state of the art ER which will open Spring 2026. With this, we anticipate parking may be a challenge for some our surgical patients and families. Parking spaces are limited but are available for all Surgical, obstetrics, and ER patients sharing this lot. If you arrive and find you are having a hard time finding a parking space, please note that we understand the challenges, please drive around the hospital and park near Hospital Entrance 1. When you enter this entrance, you can ask a volunteer to direct or take you back to the surgical waiting area to check in. We appreciate everyone?s understanding of these expected challenges while we build for your future. Report to the Outpatient Waiting Room, entrance under the green pavilion located off [address], at time _1100_ on date _[phone]_. Planned Procedure Time: _1pm_.? Time changes happen often and if your time is changed the preop area will call you the afternoon before. - You and your visitor will be asked to self-screen and do not enter if you have any COVID symptoms. Please call surgeon if you need to reschedule. - A mask is optional within the hospital at this time. Patients may have clear liquids (water, carbonated beverages, clear teas, apple juice) until 3 hours prior to surgery with a maximum of 20 ounces. - No food from midnight until time of surgery and no smoking, or chewing tobacco (or any form of nicotine). No chewing gum, candy or mints. Take only the following medications with a SIP of water on the morning of surgery: ___Metoprolol, Amlodipine, 1/2 dose morning insulin and if needed Hydrocodone____ DO NOT STOP ANY OF YOUR OTHER PRESCRIPTION MEDICATIONS PRIOR TO SURGERY EXCEPT THE FOLLOWING Hold all vitamins and supplements for 3 days per anesthesiologist. Medications to discontinue per physician Date to take last dose Continue aspirin, no need to hold. Please no make-up, nail latvian, hairspray, perfume, deodorant, or body powder the day of surgery.? No jewelry (including any body piercings) or valuables the day of surgery, leave them at home.? Please take a shower or bath the night before, or the morning of, surgery with an antibacterial soap.? Wear comfortable, loose fitting clothing.? - Jewelry must be removed prior to entering the operating room.? Rings and piercings that are not removed may be cut off. - The hospital will not accept responsibility for valuables.? - Please leave all valuables, including medications, at home the day of surgery. If you are going home after surgery, a licensed guard driver must drive you home.? - NO public transportation without another adult if you receive anesthesia. - We recommend that an adult stay with you for 24 hours following discharge. - We also recommend that you do not drive, make important decision, drink alcoholic beverages, or take any drugs that were not prescribed by your health care provider for at least 24 hours after your discharge time. Follow any additional instructions given to you from your surgeon. Telephone instructions given to __Eliazar__and asked if any additional questions and then verbalized understanding. Patient advised to call surgeon office or pre surgery nurse liaison [phone] if any additional questions.
--- NOTE | 2025-04-15 12:39 | PM.IMHP ---
H&P: HPI History of Present Illness Date/Time: 04/15/25 12:39 Chief Complaint: Medial meniscus tear left knee Narrative: 74-year-old male who presents today for arthroscopy of his left knee with partial medial meniscectomy proceed as indicated. He injured his left knee he in late February/early March. He was walking in his shop and twisted on the knee. Since and he has been having rather severe pain in the medial aspect the knee. Has difficulty weight-bearing on the leg. Also he feels that he cannot fully straighten the knee. Patient has had an MRI scan which showed a complex tear of the medial meniscus. No bony edema noted. 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 Treatment options were discussed with the patient and patient would like to proceed with arthroscopy try to get significant improvement symptoms. Review of Systems Review of Systems: All systems reviewed & are unremarkable except as noted in HPI and below PMFSH Surgical History Surgical History History of carpal tunnel surgery History of knee surgery History of back surgery H/O heart bypass surgery Social History Social History (Updated 04/06/25 @ 15:16 by Kyleigh Jiménez CMA) Smoking packs per day: 1 Smoking cigarettes per day: 20.0 Years smoked: 40 Smoking pack-years: 40.00 Smoking status: Former smoker Tobacco type: cigarettes Smoking end date: 09/08/23 Alcohol intake: never Substance use: never Current Housing: Decline to Answer Concerned About Future Housing: Decline to Answer Difficulty Paying Gas/Electric Bills: Decline to Answer Difficulty Paying for Meds: Decline to Answer Currently Unemployed: Decline to Answer Education: Decline to Answer Difficulty w/ Childcare or Family Care: Decline to Answer Living arrangements: with family Spiritual care concerns: No Meds Home Medications and Allergies Home Medications ?Medication ?Instructions ?Recorded ?Confirmed ?Type aspirin 81 mg tablet,delayed 81 mg PO DAILY 08/20/24 04/09/25 History release atorvastatin 80 mg tablet (Lipitor) 80 mg PO DAILY 08/20/24 04/09/25 History calcium 600 mg (as carbonate)-vit 1 tablet PO DAILY 08/20/24 04/09/25 History D3 10 mcg (400 unit)-minerals tablet diphenhydramine 25 1 tablet PO QHS PRN insomnia 08/20/24 04/09/25 History mg-acetaminophen 500 mg tablet (Tylenol PM Extra Strength) glimepiride 4 mg tablet 4 mg PO BID 08/20/24 04/09/25 History hydrocodone 7.5 mg-acetaminophen 1 tablet PO Q6-8H PRN pain 08/20/24 04/09/25 History 325 mg tablet magnesium oxide 400 mg (241.3 mg 400 mg PO TID 08/20/24 04/09/25 History magnesium) tablet metformin 1,000 mg tablet 1,000 mg PO BID 08/20/24 04/09/25 History pantoprazole 40 mg tablet,delayed 40 mg PO DAILY 08/20/24 04/09/25 History release amlodipine 10 mg tablet 10 mg PO DAILY 04/06/25 04/09/25 History insulin glargine U-300 conc 300 20 unit subcut DAILY 04/06/25 04/09/25 History unit/mL (1.5 mL) subcutaneous pen (TouVidmindo SoloStar U-300 Insulin) losartan 50 mg tablet 50 mg PO BID 04/06/25 04/09/25 History metoprolol succinate 100 mg 100 mg PO DAILY 04/06/25 04/09/25 History capsule sprinkle, ext. release 24 hr Allergies Allergy/AdvReac Type Severity Reaction Status Date / Time bacitracin (From Neosporin Allergy Mild Rash Verified 04/09/25 09:36 ([id number])) neomycin (From Neosporin Allergy Mild Rash Verified 04/09/25 09:36 ([id number])) polymyxin B (From Neosporin Allergy Mild Rash Verified 04/09/25 09:36 ([id number])) Exam Narrative: 74-year-old male alert pleasant. BMI is 27.3. He walks with a mild limp. Complains of pain along the medial joint line with weight-bearing. Range of motion is from 5-135 degrees. He feels a short pain in the posterior medial joint line with trying to extend him fully. Moderate to moderately severe posterior medial joint line tenderness to palpation. Mild pain with Trudy's testing. Trace effusion. 2+ posterior tibial artery pulse palpable. Normal sensation to the left lower extremity. No edema in lower extremities. Hip range of motion is full without discomfort. Resp: Auscultation: clear to auscultation bilaterally Cardio: Rate: regular rate Rhythm: regular rhythm Assessment and Plan Assessment and plan (1) Acute medial meniscus tear of left knee: Code(s): S83.242A - Other tear of medial meniscus, current injury, left knee, initial encounter Status: Acute Assessment and Plan: 74-year-old male who has an acute medial meniscus tear with inability to fully extend his knee. He has had continued pain since the twisting injury. Patient was seen in July of this year at that time had full extension of the knee. It is felt that the meniscal tear may be displaced causing his inability to fully extend the knee. Overall patient has minimal arthritic changes in the knee and no bony edema seen on MRI scan. It is felt that arthroscopy could be very beneficial for him. Surgical procedures well as the risks complications were discussed all questions were answered we will proceed. Patient will continue with his baby aspirin through the time surgery. He had a history of an [facility] approximately 1 year ago. 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
[2025-04-16] VITALS (8 sets, daily range): BP systolic 134–176; BP diastolic 73–91; PULSE 68–95; RESP 12–18; TEMP 36.2–37.4; O2SAT 94–100
--- OUTSIDE RECORDS SUMMARY | 2025-04-16 02:11 | XMS_ITS | Clinical Summary ---
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 More than 4 times per year 01/28/2024 Do you belong to any clubs o r organizations such as latter-day groups, unions, fraternal or athletic groups, or [...] any time in the past 12 m [facility], were you homeless or living in a jail (including now)? No 01/28/2024 Personal Safety Answer [...] Screen Completed Medical Devices Implanted Type Area Type Inspector Device Identifier Shelf Expiration Date Model / Serial / Lot [employer] Sensation Plus Statlock 8fr 17.4mm .027in 6in 258mm Fiber Optic 7818-29-6949-01 u - [id number] Implanted:Qty: 1 on 12/02/2023 by Kaveh Vital MD at [facility] [employer] 10/20/2025 [id number] / / [id number] [employer] Doe Distal Marker Radiology Stainless Steel Sterile Amgm-D - [id number] Implanted:Qty: 1 on 12/04/2023 by Adalberto Carreon MD at [facility] N/A: Heart [employer] [id number] 07/26/2026 AMGM-D / / [id number] [employer] Doe Distal Marker Radiology Stainless Steel Sterile Amgm-D - [id number] Implanted:Qty: 1 on 12/04/2023 by Adalberto Carreon MD at [facility] N/A: Heart [employer] [id number] 07/26/2026 AMGM-D / / [id number] Procedures Procedure Name Priority Date/Time Associated Diagnosis [...] dilated. ADRENALS: Normal. KIDNEYS/URINARY TRACT: There is hexb-eg-dcnhjeni nonspecific perinephric fat stranding bilaterally. No focal [...] 12:10 AM - Electronically signed by Eric Navarerte M.D., Eric.O. Janes Banda M.D. T: Report ID: [id number] Reading Location: [id number] Procedure Note Eric Navarrete MD - 01/28/2024 [...] dilated. ADRENALS: Normal. KIDNEYS/URINARY TRACT: There is ocvg-qe-qjsaoodn nonspecific perinephricfat stranding bilaterally. No focal renal [...] Navarrete M.D., Eric.OPranav RICKS T: Report ID: [id number] Reading Location: [id number] Anju Shi MD IMG CT PROCEDURES Maude l Result from Last 3 Months or Most Recently Relevant to Health Maintenance Insurance MEDICARE [facility] MEDICARE [employer] Advance Directives For more information, please contact: [phone] * Full Code (Latest Code Status on File) Date Activated Date Inactivated Comments 01/28/2024 3:57 AM 01/29/2024 8:41 PM * Full Code Date Activated Date Inactivated Comments 01/04/2024 11:34 PM 01/08/2024 5:32 PM * Full Code Date Activated Date Inactivated Comments 12/04/2023 4:08 PM 12/09/2023 7:28 PM * Full Code Date Activated Date Inactivated Comments 12/02/2023 5:59 PM 12/04/2023 4:08 PM Care Teams Buttonhole Maker Hand Relationship Specialty Start Date End Date Alexander Queen MD PCP - General Internal Medicine 12/01/23 Adalberto Burkett MD Consulting Physician Nephrology 01/29/24
--- OUTSIDE RECORDS SUMMARY | 2025-04-16 02:11 | XMS_ITS | Clinical Summary ---
Author Organization [facility] Address [address] [place] [address] Care Team Providers Care Field Manager Name Role Phone None, Provider MD Primary [...] on file Legal Sex Male 12:36 PM PLATE WASHER Gender Identity Not on file Sexual Orientation Not on file Last Filed Vital Signs Vital Sign Reading Time Taken Comments Blood Pressure 174/80 08/06/2023 6:56 PM PLATE WASHER Pulse 107 08/06/2023 6:56 PM PLATE WASHER Temperature 36.4 C (97.5 F) 08/06/2023 6:56 PM PLATE WASHER Respiratory Rate 20 08/06/2023 6:56 PM PLATE WASHER Oxygen Saturation 97% 08/06/2023 6:56 PM PLATE WASHER Inhaled Oxygen Concentration - - Weight 81.6 kg (180 lb) 08/06/2023 6:56 PM PLATE WASHER Height 172.7 cm (5' 8) 08/06/2023 6:56 PM PLATE WASHER Body Mass Index 27.37 08/06/2023 6:56 PM PLATE WASHER Plan of Treatment Health Maintenance Due Date [...] this topic Insurance MEDICARE [employer] Care Teams Field Manager Relationship Specialty Start Date End Date None, Provider, MD PCP - General UNKNOWN PHYSICIAN SPECIALTY 08/06/23
[2025-04-16] MEDS: ACETAMINOPHEN 500 MG TABLET 1000 MG PO (11:40)
[2025-04-16] MEDS: KETOROLAC 15 MG/ML VIAL (*BKC) IV PUSH (11:45)
[2025-04-16] MEDS: LACTATED RINGERS 1,000 ML 30 ML IV CONT (11:45)
--- NOTE | 2025-04-16 11:48 | WPDHPUPDATE1 ---
History and Physical Update Update Date/Time: 04/16/25 11:48 History and Physical has been reviewed, including an updated exam of the patient. There are NO changes in the patient's condition. Risks, benefits, and alternatives have been discussed and questions answered. Patient agrees to proceed with procedure.
--- NOTE | 2025-04-16 13:08 | WPDANESEPPF ---
Anes - Initial Pre Proc Eval Procedure: Operation Date: 04/16/25 13:00 Proposed Procedures p Arthroscopic Partial Medial Meniscectomy Left Knee, Proceed As Indicated - Irving Elise MD Date/Time: 04/16/25 13:08 Surgeon: Irving Elise MD Pre Op Diagnosis: Lt Knee Medial Meniscus tear Patient Data Age: 74 Gender: M Height: 1.75 m Weight: 85.6 kg Last Vital Signs Temp 99.3 F 04/16/25 11:20 Pulse 79 04/16/25 11:20 Resp 18 04/16/25 11:20 BP 176/88 H 04/16/25 11:20 Pulse Ox 97 04/16/25 11:20 O2 Del Method Room Air 04/16/25 11:20 Allergies Allergy/AdvReac Type Severity Reaction Status Date / Time bacitracin (From Neosporin Allergy Mild Rash Verified 04/16/25 11:53 ([id number])) neomycin (From Neosporin Allergy Mild Rash Verified 04/16/25 11:53 ([id number]-tan-bvtrt)) polymyxin B (From Neosporin Allergy Mild Rash Verified 04/16/25 11:53 ([id number]-eha-vojmq)) Home Medications ?Medication ?Instructions ?Recorded ?Confirmed ?Type aspirin 81 mg tablet,delayed 81 mg PO DAILY 08/20/24 04/16/25 History release atorvastatin 80 mg tablet (Lipitor) 80 mg PO DAILY 08/20/24 04/16/25 History calcium 600 mg (as carbonate)-vit 1 tablet PO DAILY 08/20/24 04/16/25 History D3 10 mcg (400 unit)-minerals tablet diphenhydramine 25 1 tablet PO QHS PRN insomnia 08/20/24 04/09/25 History mg-acetaminophen 500 mg tablet (Tylenol PM Extra Strength) glimepiride 4 mg tablet 4 mg PO BID 08/20/24 04/16/25 History hydrocodone 7.5 mg-acetaminophen 1 tablet PO Q6-8H PRN pain 08/20/24 04/09/25 History 325 mg tablet magnesium oxide 400 mg (241.3 mg 400 mg PO TID 08/20/24 04/16/25 History magnesium) tablet metformin 1,000 mg tablet 1,000 mg PO BID 08/20/24 04/16/25 History pantoprazole 40 mg tablet,delayed 40 mg PO DAILY 08/20/24 04/16/25 History release amlodipine 10 mg tablet 10 mg PO DAILY 04/06/25 04/16/25 History insulin glargine U-300 conc 300 20 unit subcut DAILY 04/06/25 04/16/25 History unit/mL (1.5 mL) subcutaneous pen (Toujeo SoloStar U-300 Insulin) losartan 50 mg tablet 50 mg PO BID 04/06/25 04/16/25 History metoprolol succinate 100 mg 100 mg PO DAILY 04/06/25 04/16/25 History capsule sprinkle, ext. release 24 hr Laboratory Tests 04/16/25 11:48 POC Capillary Glucose 151 H mg/dl (65-105) Patient hx anesthesia problems: none Family hx anesthesia problems: none Results Review: All pre-operative results and documents have been reviewed as part of the pre-operative evaluation. [facility] Surgical History Surgical History History of carpal tunnel surgery History of knee surgery History of back surgery H/O heart bypass surgery Social History Social History (Updated 04/06/25 @ 15:16 by Kyleigh Jiménez CMA) Smoking packs per day: 1 Smoking cigarettes per day: 20.0 Years smoked: 40 Smoking pack-years: 40.00 Smoking status: Former smoker Tobacco type: cigarettes Smoking end date: 09/08/23 Alcohol intake: never Substance use: never Current Housing: Decline to Answer Concerned About Future Housing: Decline to Answer Difficulty Paying Gas/Electric Bills: Decline to Answer Difficulty Paying for Meds: Decline to Answer Currently Unemployed: Decline to Answer Education: Decline to Answer Difficulty w/ Childcare or Family Care: Decline to Answer Living arrangements: with family Spiritual care concerns: No Anes - Eval Final PreProcedure Day of Procedure 04/16/25 13:08 Patient weight: normal Heart: regular rate and rhythm Lungs: clear to auscultation Airway: Mallampati scale class II Neurological: alert and oriented Last oral intake: >/= 8 hours ASA classification: III Emergent: no Anesthetic plan: proceed Anesthesia type and monitoring: general LMA and standard monitoring Results Review: All pre-operative results and documents have been reviewed as part of the pre-operative evaluation. Informed Consent: The patient's anesthetic plan and its attendant risks and benefits were discussed with the patient/family/POA. Questions were solicited and answers provided to the satisfaction of the patient/family/POA.
[2025-04-16] MEDS: ceFAZolin 2 GM in SODIUM CHLORIDE 0.9% IV 50 ML 100 ML IVPB (13:13)
[2025-04-16] MEDS: LIDO 1%/EPINEPHRINE 1:100,000 20 ML VIAL 15 ML INFILTRATE (13:39)
--- NOTE | 2025-04-16 14:32 | W.PM.PROC2 ---
Procedure Note - Detailed Date of Procedure 04/16/25 Pre-op Diagnosis Lt Knee Medial Meniscus tear Post-op Diagnosis Same Procedure Performed Arthroscopic partial medial meniscectomy left knee Surgeon Irving Elise MD Anesthesia General Description of Procedure Patient was brought to the operating room and general anesthesia was administered. The left knee was prepped draped usual fashion received 2 g of Ancef preoperatively. 1% lidocaine local anesthesia was injected into the joint for hemostasis and into the portal sites for analgesia. Superomedial outflow portal was placed. Anterolateral portal placed in the medial compartment viewed. Medial portal was placed under arthroscopic vision. The articular surface of the medial compartment looked essentially normal. There are no areas of obvious chondromalacia. There was evidence of chondrocalcinosis specks on the surface of the ACL and the a spherical clump of meniscus tissue based at the medial root present vertically was densely infiltrated with chondrocalcinosis crystals. There was a complex tear of the posterior horn of the medial meniscus that extended to junction of posterior horn and midbody with multiple flaps based at the root and these were resected with alternating punch and motorized shaver. Prominent macerated superior and inferior leaflets at the center of the posterior horn were debrided. Probing under the posterior horn of the meniscus showed no additional flaps. With the arthroscope in the anteromedial portal we inserted a probe under the midbody and posterior horn of the meniscus and no additional flaps could be identified. The transition between the resected posterior horn and midbody was trimmed with a motorized shaver to create a smooth transition. The ACL and PCL little bit swollen and macerated but were otherwise intact. Lateral compartment looked normal. The patellofemoral joint showed mild chondromalacia of the patella and moderate central chondromalacia in the trochlear groove. This completed the procedure. I noted that the knee continued to lacked 5? 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 Portals were closed with 4-0 nylon suture in a soft bulky dressing applied the patient transferred to postop recovery good condition. There were no complications. [facility] Billing Surgery - Charge Forward: Surgery Billing (Arthroscopic partial medial meniscectomy left knee)
--- NOTE | 2025-04-16 14:36 | SUR.PHASEI ---
Patient woke up combative and unable to follow commands. Dr. Pappas gave Propofol to patient.
== END 2025-04-16 16:15 | disposition home or self-care (01) ==
PROVIDERS: PCP Internal Medicine; Visit Provider Orthopaedic Surgery
PROC: (CPT 29870; principal; 2025-04-16 13:00)
DX: S83.232A Complex tear of medial meniscus, current injury, left knee, initial encounter (principal); M94.262 Chondromalacia, left knee; X50.0XXA Overexertion from strenuous movement or load, initial encounter; Z87.891 Personal history of nicotine dependence; Z79.4 Long term (current) use of insulin; Z79.84 Long term (current) use of oral hypoglycemic drugs
CPT/HCPCS: 29881; 82948; J0690; A9270; J1885; J2003; J2004; J2405; J2704; J3010; J7120